=== PATIENT | male | born 1990 | race Caucasian/White ===

== ENCOUNTER 2024-08-06 08:33 | Emergency (ER) | payer MEDICAID, OTHER ==
[~2024-08-06] VITALS: Ht 175.3 cm; Wt 85.2 kg
[~2024-08-06 08:33] MED LIST: CLIN-97 PO
[2024-08-06 08:40] VITALS: TEMP 98.6
[2024-08-06] MEDS ORDERED: AMOX-580 PO (09:21)
[2024-08-06] MEDS ORDERED: NAPR-56 PO (09:21)
[2024-08-06] MEDS: naproxen 500mg tablet PO ONE (09:32)
[2024-08-06] MEDS: amox tr/potassium clavulanate 875/125mg TAB PO ONE (09:32)
[2024-08-06 09:48] VITALS: BP 146/97; PULSE 75; RESP 16; O2SAT 97
== END 2024-08-06 09:51 | disposition home or self-care (01) ==
LOC: ER 08:33
DX: K04.7 Periapical abscess without sinus (principal); K02.9 Dental caries, unspecified; F15.90 Other stimulant use, unspecified, uncomplicated; Z79.1 Long term (current) use of non-steroidal anti-inflammatories (NSAID); Z79.899 Other long term (current) drug therapy; Z72.89 Other problems related to lifestyle; Z98.890 Other specified postprocedural states
CPT/HCPCS: 99283